=== PATIENT | female | born 1990 | race Caucasian/White ===

== ENCOUNTER 2019-11-22 17:59 | Inpatient (IN) | payer OTHER ==
[~2019-11-22 17:59] MED LIST: Lidocaine 1.5% with EPINEPHrine 1:200,000 5 ML Amp ONE
[2019-11-22] MEDS ORDERED: Lidocaine 1% 50 ML MDV INJECT ONE (18:22)
[2019-11-22] MEDS ORDERED: Sodium Chloride 0.9% 10 ML Syringe FLUSH PRN (18:22)
[2019-11-22] MEDS ORDERED: Nalbuphine 10 MG/ML Syringe IVPUSH PRN (18:22)
[2019-11-22] MEDS ORDERED: Ondansetron 4 MG/2 ML SDV IVPUSH PRN (18:22)
[2019-11-22] MEDS ORDERED: Oxytocin/Lactated Ringers 10 UNIT/1,000 ML BAG IV SCH ×2 (18:30)
[2019-11-22] MEDS: Lactated Ringers 1,000 ML IV SCH ×3 (18:42→20:19)
[2019-11-22] MEDS ORDERED: diphenhydrAMINE 50 MG/ML SDV IVPUSH PRN (19:25)
[2019-11-22] MEDS ORDERED: Bupivacaine/fentaNYL/NS 100 ML Bag EPIDUR PRN (19:25)
[2019-11-22] MEDS ORDERED: fentaNYL 100 MCG/2 ML SDV EPIDUR PRN (19:25)
[2019-11-22] MEDS ORDERED: ePHEDrine 50 MG/ML SDV IVPUSH PRN (19:25)
--- NOTE | 2019-11-22 19:28 | PCM.LDHP ---
L&D History of Present Illness - General Date of Service: 11/22/19 Admit Problem/Dx: Patient Status Order with Admit Dx/Problem 11/22/19 18:04 Patient Status [ADT] Routine 11/22/19 18:22 Patient Status [ADT] Routine Admission Diagnosis/Problem Admission Diagnosis/Problem Source of Information: Patient History Limitations: Reports: No Limitations - History of Present Illness Introduction:: Patient is a 29 y/o at 40 0/7 wks who presents in labor. Contractions started today around 0500. Worsened right before presenting to L&D at 1800. No LOF - Related Data Allergies/Adverse Reactions: Allergies Allergy/AdvReac Type Severity Reaction Status Date / Time No Known Allergies Allergy Verified 03/20/16 02:02 Home Medications: Home Meds Pnv95/Iron Fum/Folic Acid [ Caplet] 1 each PO DAILY 03/05/16 [History] Acetaminophen [Tylenol] 650 mg PO Q6H PRN tablet 11/27/17 [Rx] Benzocaine/Menthol [Dermoplast Pain Relief [place]] 1 spray TOP ASDIRECTED PRN canister 11/27/17 [Rx] Fish Oil/[place]-3 Fatty Acids [Fish Oil 1,000 MG] 1 gm PO DAILY cap 11/27/17 [Rx] Ibuprofen [Motrin] 600 mg PO Q6H PRN tablet 11/27/17 [Rx] Lanolin [Lansinoh HPA] 1 applic TOP ASDIRECTED PRN tube 11/27/17 [Rx] witch Shabana [Tucks] 1 pad TOP ASDIRECTED PRN pad 11/27/17 [Rx] 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 LMP (Approximate): - Past Surgical History HEENT Surgical History: Reports: Myringotomy w Tube(s), Oral Surgery Social & Family History - Family History Family Medical History: Noncontributory - Tobacco Use Tobacco Use Status *Q: Never Tobacco User Second Hand Smoke Exposure: No - Caffeine Use Caffeine Use: Reports: Coffee Caffeine Use Comment: half cup every day - Alcohol Use Alcohol Use History: No - Recreational Drug Use Recreational Drug Use: No H&P Review of Systems - Review of Systems: Review Of Systems: See Below General: Reports: No Symptoms Pulmonary: Reports: No Symptoms Cardiovascular: Reports: No Symptoms Gastrointestinal: Reports: No Symptoms Genitourinary: Reports: No Symptoms Musculoskeletal: Reports: No Symptoms Psychiatric: Reports: No Symptoms Neurological: Reports: No Symptoms L&D Exam - Exam Exam: See Below - Vital Signs Vital Signs: Last Vital Signs Temp 37.2 C 11/22/19 18:04 Pulse 80 11/22/19 18:04 Resp 14 11/22/19 18:04 BP 134/87 11/22/19 18:04 Pulse Ox Weight: 74.389 kg - OB Specific Contraction Intensity: Moderate to Strong Movement: Active Heart Tones: Present Heart Tones per Min: 125 Heart Rate (FHR) Variability: Moderate (6-25 bmp) Presentation: Vertex - Cunningham Score Cunningham Score Cervix Position: Anterior Cunningham Score Consistency: Soft Cunningham Score Effacement: >80% Cunningham Score Dilation: > 5 cm Cunningham Score Infant's Station: -2 Cunningham Score Total: 11 - Exam General: Alert, Oriented, Cooperative Lungs: Clear to Auscultation, Normal Respiratory Effort Cardiovascular: Regular Rate, Regular Rhythm GI/Abdominal Exam: Soft, Non-Tender Genitourinary: Normal external exam Extremities: Normal Inspection Skin: Warm, Dry, Intact - Patient Data Lab Results Last 24 hrs: Laboratory Results - last 24 hr 11/22/19 Range/Units 18:45 WBC 12.11 H (3.98-10.04) K/mm3 RBC 4.31 (3.98-5.22) M/mm3 Hgb 13.4 (11.2-15.7) gm/dl Hct 40.0 (34.1-44.9) % MCV 92.8 (79.4-94.8) fl MCH 31.1 (25.6-32.2) pg MCHC 33.5 (32.2-35.5) g/dl RDW Std Deviation 44.7 (36.4-46.3) fL Plt Count 202 (182-369) K/mm3 MPV 10.6 (9.4-12.3) fl Neut % (Auto) 83.4 H (34.0-71.1) % Lymph % (Auto) 11.1 L (19.3-51.7) % [place] % (Auto) 5.0 (4.7-12.5) % Eos % (Auto) 0.2 L (0.7-5.8) Baso % (Auto) 0.1 (0.1-1.2) % Neut # (Auto) 10.09 H (1.56-6.13) K/mm3 Lymph # (Auto) 1.35 (1.18-3.74) K/mm3 [place] # (Auto) 0.60 H (0.24-0.36) K/mm3 Eos # (Auto) 0.03 L (0.04-0.36) K/mm3 Baso # (Auto) 0.01 (0.01-0.08) K/mm3 Manual Slide Review Not Reportable Result Diagrams: 11/22/19 18:45 - Problem List (1) 40 weeks gestation of SNOMED Code(s): 83947107 ICD Code: Z3A.40 - 40 WEEKS GESTATION OF Status: Acute Current Visit: Yes (2) Normal labor SNOMED Code(s): 82140000 ICD Code: O80 - ENCOUNTER FOR FULL-TERM UNCOMPLICATED DELIVERY; Z37.9 - OUTCOME OF DELIVERY, UNSPECIFIED Status: Acute Current Visit: No Problem List Initiated/Reviewed/Updated: Yes Orders Last 24hrs: Active Orders 24 hr Category Date Time Status Patient Status [ADT] Routine ADT 11/22/19 18:22 Active Activity as Tolerated [RC] PFP Care 11/22/19 18:22 Active Communication Order [RC] ASDIRECTED Care 11/22/19 18:22 Active Heart Tones [RC] ASDIRECTED Care 11/22/19 18:23 Active Notify Provider [RC] ASDIRECTED Care 11/22/19 19:25 Ordered Notify Provider [RC] PFP Care 11/22/19 18:22 Active Notify Provider [RC] PRN Care 11/22/19 18:22 Active Peripheral IV Care [RC] . DIRECTED Care 11/22/19 18:23 Active Urinary Catheter Assessment [RC] ASDIRECTED Care 11/22/19 18:22 Active Vaginal Exam [RC] PRN Care 11/22/19 18:04 Active Vital Signs [RC] PER UNIT ROUTINE Care 11/22/19 18:04 Active Regular Diet [DIET] Diet 11/22/19 Breakfast Active CORONAVIRUS COVID-19 VAMSHI [MOLEC] Stat Lab 11/22/19 18:12 Received RAPID PLASMA REAGIN,RPR [CHEM] Routine Lab 11/22/19 18:45 Received Bupivacaine/fentaNYL/NS [fentaNYL/Bupivacaine/NS 2 MCG- Med 11/22/19 19:25 Ordered 0.125% 100 ML] 100 ml EPIDUR ASDIRECTED PRN Lactated Ringers [Ringers, Lactated] 1,000 ml Med 11/22/19 18:30 Active IV ASDIRECTED Nalbuphine [Nubain] Med 11/22/19 18:22 Active 10 mg IVPUSH Q2H PRN Ondansetron [Zofran] Med 11/22/19 18:22 Active 4 mg IVPUSH Q4H PRN Oxytocin/Lactated Ringers [Pitocin in LR 10 Units/1,000 Med 11/22/19 18:30 Active ML] 10 unit in 1,000 ml IV .CONTINUOUS Oxytocin/Lactated Ringers [Pitocin in LR 10 Units/1,000 Med 11/22/19 18:30 Active ML] 10 unit in 1,000 ml IV TITRATE Sodium Chloride 0.9% [Saline Flush] Med 11/22/19 18:22 Active 10 ml FLUSH ASDIRECTED PRN diphenhydrAMINE [Benadryl] Med 11/22/19 19:25 Ordered 25 mg IVPUSH Q6H PRN ePHEDrine [ePHEDrine sulfate] Med 11/22/19 19:25 Ordered 5 mg IVPUSH ASDIRECTED PRN fentaNYL [Sublimaze] Med 11/22/19 19:25 Ordered 100 mcg EPIDUR Q3H PRN Electronic Heart Tones Ext w TOCO [WOMSER] Oth 11/22/19 18:22 Ordered Routine Electronic Heart Tones Internal [WOMSER] Per Unit Oth 11/22/19 18:22 Ordered Routine Peripheral IV Insertion Adult [OM.PC] Routine Oth 11/22/19 18:22 Ordered Resuscitation Status Routine Resus Stat 11/22/19 18:03 Ordered Medication Orders Lactated Ringer's (Ringers, Lactated) 1,000 mls @ 100 mls/hr IV ASDIRECTED ELLEN Last Admin: 11/22/19 18:42 Dose: 100 mls/hr Documented by: ESPERANZA Oxytocin/Lactated Ringer's (Pitocin In Lr 10 Units/1,000 Ml) 10 unit in 1,000 mls @ 12 mls/hr IV TITRATE ELLEN; Protocol Oxytocin/Lactated Ringer's (Pitocin In Lr 10 Units/1,000 Ml) 10 unit in 1,000 mls @ 100 mls/hr IV .CONTINUOUS ELLEN; Protocol Nalbuphine HCl (Nubain) 10 mg IVPUSH Q2H PRN PRN Reason: Pain Ondansetron HCl (Zofran) 4 mg IVPUSH Q4H PRN PRN Reason: Nausea/Vomiting Sodium Chloride (Saline Flush) 10 ml FLUSH ASDIRECTED PRN PRN Reason: Keep Vein Open Assessment/Plan Comment:: On admission 4 cm. Now comfortable with epidural. 9 cm on current assessment. GBS negative. AROM done with release of clear fluid. Anticipate
[2019-11-22] MEDS ORDERED: fentaNYL 100 MCG/2 ML SDV ONE (19:31)
--- NOTE | 2019-11-22 20:25 | PCM.PREANE ---
Preanesthetic Assessment - Procedure Proposed Procedure: Labor Epidural - Anesthesia/Transfusion/Family Hx Anesthesia History: Prior Anesthesia Without Reaction Transfusion History: No Prior Transfusion(s) Type of Transfusion Reactions: Reports: Unknown - Review of Systems General: No Symptoms Pulmonary: No Symptoms Cardiovascular: No Symptoms Gastrointestinal: No Symptoms Neurological: No Symptoms Other: Reports: None - Physical Assessment NPO Status Date: 11/22/19 NPO Status Time: 12:00 Vital Signs: Last Vital Signs Temp 99.0 F 11/22/19 18:04 Pulse 80 11/22/19 18:04 Resp 14 11/22/19 18:04 BP 134/87 11/22/19 18:04 Pulse Ox Height: 5 ft 5 in Weight: 164 lb ASA Class: 1 Mental Status: Alert & Oriented x3 ROM/Head Extension: Full Lungs: Normal Respiratory Effort Cardiovascular: Regular Rate, Regular Rhythm - Lab Values: Laboratory Last Values WBC 12.11 K/mm3 (3.98-10.04) H 11/22/19 18:45 RBC 4.31 M/mm3 (3.98-5.22) 11/22/19 18:45 Hgb 13.4 gm/dl (11.2-15.7) 11/22/19 18:45 Hct 40.0 % (34.1-44.9) 11/22/19 18:45 MCV 92.8 fl (79.4-94.8) 11/22/19 18:45 MCH 31.1 pg (25.6-32.2) 11/22/19 18:45 MCHC 33.5 g/dl (32.2-35.5) 11/22/19 18:45 RDW Std Deviation 44.7 fL (36.4-46.3) 11/22/19 18:45 Plt Count 202 K/mm3 (182-369) 11/22/19 18:45 MPV 10.6 fl (9.4-12.3) 11/22/19 18:45 Neut % (Auto) 83.4 % (34.0-71.1) H 11/22/19 18:45 Lymph % (Auto) 11.1 % (19.3-51.7) L 11/22/19 18:45 [place] % (Auto) 5.0 % (4.7-12.5) 11/22/19 18:45 Eos % (Auto) 0.2 (0.7-5.8) L 11/22/19 18:45 Baso % (Auto) 0.1 % (0.1-1.2) 11/22/19 18:45 Neut # (Auto) 10.09 K/mm3 (1.56-6.13) H 11/22/19 18:45 Lymph # (Auto) 1.35 K/mm3 (1.18-3.74) 11/22/19 18:45 [place] # (Auto) 0.60 K/mm3 (0.24-0.36) H 11/22/19 18:45 Eos # (Auto) 0.03 K/mm3 (0.04-0.36) L 11/22/19 18:45 Baso # (Auto) 0.01 K/mm3 (0.01-0.08) 11/22/19 18:45 Manual Slide Review Not Reportable 11/22/19 18:45 - Allergies Allergies/Adverse Reactions: Allergies Allergy/AdvReac Type Severity Reaction Status Date / Time No Known Allergies Allergy Verified 03/20/16 02:02 - Acknowledgements Anesthesia Type Planned: Epidural Pt an Appropriate Candidate for the Planned Anesthesia: Yes Alternatives and Risks of Anesthesia Discussed w Pt/Guardian: Yes Pt/Guardian Understands and Agrees with Anesthesia Plan: Yes 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 - Past Surgical History HEENT Surgical History: Reports: Myringotomy w Tube(s), Oral Surgery - SUBSTANCE USE Tobacco Use Status *Q: Never Tobacco User Second Hand Smoke Exposure: No Recreational Drug Use History: No - HOME MEDS Home Medications: Home Meds Pnv95/Iron Fum/Folic Acid [ Caplet] 1 each PO DAILY 03/05/16 [History] Acetaminophen [Tylenol] 650 mg PO Q6H PRN tablet 11/27/17 [Rx] Benzocaine/Menthol [Dermoplast Pain Relief [place]] 1 spray TOP ASDIRECTED PRN canister 11/27/17 [Rx] Fish Oil/[place]-3 Fatty Acids [Fish Oil 1,000 MG] 1 gm PO DAILY cap 11/27/17 [Rx] Ibuprofen [Motrin] 600 mg PO Q6H PRN tablet 11/27/17 [Rx] Lanolin [Lansinoh HPA] 1 applic TOP ASDIRECTED PRN tube 11/27/17 [Rx] juno Donald [Tucks] 1 pad TOP ASDIRECTED PRN pad 11/27/17 [Rx] - CURRENT (IN HOUSE) MEDS Current Meds: Current Medications Diphenhydramine HCl (Benadryl) 25 mg IVPUSH Q6H PRN PRN Reason: pruritis Ephedrine Sulfate (Ephedrine Sulfate) 5 mg IVPUSH ASDIRECTED PRN PRN Reason: Hypotension Fentanyl (Sublimaze) 100 mcg EPIDUR Q3H PRN PRN Reason: Pain Last Admin: 11/22/19 19:34 Dose: 100 mcg Documented by: Fentanyl/Bupivacaine HCl (Fentanyl/Bupivacaine/Ns 2 Mcg-0.125% 100 Ml) 100 ml EPIDUR ASDIRECTED PRN PRN Reason: Pain Last Admin: 11/22/19 19:35 Dose: 100 ml Documented by: Lactated Ringer's (Ringers, Lactated) 1,000 mls @ 100 mls/hr IV ASDIRECTED ELLEN Last Admin: 11/22/19 20:19 Dose: 100 mls/hr Documented by: Oxytocin/Lactated Ringer's (Pitocin In Lr 10 Units/1,000 Ml) 10 unit in 1,000 mls @ 12 mls/hr IV TITRATE ELLEN; Protocol Oxytocin/Lactated Ringer's (Pitocin In Lr 10 Units/1,000 Ml) 10 unit in 1,000 mls @ 100 mls/hr IV .CONTINUOUS ELLEN; Protocol Nalbuphine HCl (Nubain) 10 mg IVPUSH Q2H PRN PRN Reason: Pain Ondansetron HCl (Zofran) 4 mg IVPUSH Q4H PRN PRN Reason: Nausea/Vomiting Sodium Chloride (Saline Flush) 10 ml FLUSH ASDIRECTED PRN PRN Reason: Keep Vein Open Discontinued Medications Fentanyl (Sublimaze) Confirm Administered Dose 100 mcg .ROUTE .STK-MED ONE Stop: 11/22/19 19:32 Lidocaine HCl (Xylocaine 1%) 50 ml INJECT ONETIME ONE Stop: 11/22/19 18:23
--- NOTE | 2019-11-22 22:50 | PCM.DEL ---
L & D Note - General Info Date of Service: 11/22/19 - Delivery Note Labor: Spontaneous Delivery Outcome: Livebirth Delivery Method: Spontaneous Vaginal Delivery-Single Delivery Mode: Spontaneous Presentation: Left Occiput Anterior (MEENAKSHI) Nuchal Cord: Present (tight, not reduced ) Anesthesia Type: Epidural Amniotic Fluid Description: Clear Episiotomy Type: None Laceration: 1st Degree Suture type: Vicryl Suture size: 2-0 Placenta: Intact, Spontaneous Cord: 3 Vessels Estimated Blood Loss: 200 [place]: Bulb Syringe, Stimulated, Warmed, [place] Used, Warmer Used Delivery Comments (Free Text/Narrative):: Patient found to be complete and began pushing. With maternal pushing effort head delivered from MEENAKSHI presentation. Nuchal cord present, but not reduced as tight. With gentle downward traction shoulders and body delivered. Infant placed on maternal abdomen. Cord clamped and cut. Cord blood obtained. Placenta allowed time to separate and expelled intact. Inspection of perineum showed a 1st degree laceration which was repaired with a 2-0 vicryl in the typical fashion - General Info Date of Service: 11/22/19 - Patient Data Vitals - Most Recent: Last Vital Signs Temp 37.2 C 11/22/19 18:04 Pulse 80 11/22/19 18:04 Resp 14 11/22/19 18:04 BP 134/87 11/22/19 18:04 Pulse Ox Weight - Most Recent: 74.389 kg - Problem List & Annotations (1) 40 weeks gestation of SNOMED Code(s): 50102166 Code(s): Z3A.40 - 40 WEEKS GESTATION OF Status: Acute Current Visit: Yes (2) Normal labor SNOMED Code(s): 45325401 Code(s): O80 - ENCOUNTER FOR FULL-TERM UNCOMPLICATED DELIVERY; Z37.9 - OUTCOME OF DELIVERY, UNSPECIFIED Status: Acute Current Visit: No (3) Vaginal delivery SNOMED Code(s): 678031387 Code(s): O80 - ENCOUNTER FOR FULL-TERM UNCOMPLICATED DELIVERY Status: Acute Current Visit: No - Problem List Review Problem List Initiated/Reviewed/Updated: Yes - My Orders Last 24 Hours: My Active Orders 11/22/19 Breakfast Regular Diet [DIET] 11/22/19 18:03 Resuscitation Status Routine 11/22/19 18:22 Patient Status [ADT] Routine Activity as Tolerated [RC] PFP Communication Order [RC] ASDIRECTED Notify Provider [RC] PFP Notify Provider [RC] PRN Urinary Catheter Assessment [RC] ASDIRECTED Nalbuphine [Nubain] 10 mg IVPUSH Q2H PRN Ondansetron [Zofran] 4 mg IVPUSH Q4H PRN Sodium Chloride 0.9% [Saline Flush] 10 ml FLUSH ASDIRECTED PRN Electronic Heart Tones Ext w TOCO [WOMSER] Routine Electronic Heart Tones Internal [WOMSER] Per Unit Routine Peripheral IV Insertion Adult [OM.PC] Routine 11/22/19 18:23 Peripheral IV Care [RC] Q2HR 11/22/19 18:30 Lactated Ringers [Ringers, Lactated] 1,000 ml IV ASDIRECTED Oxytocin/Lactated Ringers [Pitocin in LR 10 Units/1,000 ML] 10 unit in 1,000 ml IV .CONTINUOUS Oxytocin/Lactated Ringers [Pitocin in LR 10 Units/1,000 ML] 10 unit in 1,000 ml IV TITRATE - Assessment Assessment:: PPD#0 - Plan Plan:: Routine cares Breast feeding Discharge home in 2 days
[2019-11-22] MEDS ORDERED: Docusate Sodium 100 MG Cap PO PRN (23:27)
[2019-11-22] MEDS ORDERED: Acetaminophen 325 MG Tab PO PRN (23:27)
[2019-11-22] MEDS ORDERED: Benzocaine/Menthol 20%-0.5% Spray 56 GM Canister TOP PRN (23:27)
[2019-11-22] MEDS ORDERED: Witch Hazel Medicated Pads 40/Jar TOP PRN (23:27)
[2019-11-23] MEDS: Ibuprofen 600 MG Tab PO PRN ×3 (04:00→18:07)
--- NOTE | 2019-11-23 06:59 | PCM.PNPP ---
- General Info Date of Service: 11/23/19 Functional Status: Reports: Pain Controlled, Tolerating Diet, Ambulating, Urinating - Review of Systems General: Reports: No Symptoms Pulmonary: Reports: No Symptoms Cardiovascular: Reports: No Symptoms Gastrointestinal: Reports: No Symptoms Genitourinary: Reports: No Symptoms Musculoskeletal: Reports: No Symptoms - Patient Data Vital Signs - Most Recent: Last Vital Signs Temp 37.4 C 11/23/19 03:27 Pulse 79 11/23/19 03:27 Resp 14 11/23/19 03:27 BP 111/61 11/23/19 03:27 Pulse Ox 97 11/23/19 03:27 Weight - Most Recent: 74.389 kg Lab Results - Last 24 Hours: Laboratory Results - last 24 hr 11/22/19 11/22/19 11/22/19 Range/Units 18:12 18:45 18:45 WBC 12.11 H (3.98-10.04) K/mm3 RBC 4.31 (3.98-5.22) M/mm3 Hgb 13.4 (11.2-15.7) gm/dl Hct 40.0 (34.1-44.9) % MCV 92.8 (79.4-94.8) fl MCH 31.1 (25.6-32.2) pg MCHC 33.5 (32.2-35.5) g/dl RDW Std Deviation 44.7 (36.4-46.3) fL Plt Count 202 (182-369) K/mm3 MPV 10.6 (9.4-12.3) fl Neut % (Auto) 83.4 H (34.0-71.1) % Lymph % (Auto) 11.1 L (19.3-51.7) % [place] % (Auto) 5.0 (4.7-12.5) % Eos % (Auto) 0.2 L (0.7-5.8) Baso % (Auto) 0.1 (0.1-1.2) % Neut # (Auto) 10.09 H (1.56-6.13) K/mm3 Lymph # (Auto) 1.35 (1.18-3.74) K/mm3 [place] # (Auto) 0.60 H (0.24-0.36) K/mm3 Eos # (Auto) 0.03 L (0.04-0.36) K/mm3 Baso # (Auto) 0.01 (0.01-0.08) K/mm3 Manual Slide Review Not Reportable RPR Non-reactive (NONREACTIVE) SARS-CoV-2 RNA (VAMSHI) Negative (NEGATIVE) Med Orders - Current: Current Medications Acetaminophen (Tylenol) 650 mg PO Q4H PRN PRN Reason: mild pain or fever Benzocaine/Menthol (Dermoplast Pain Relief [place]) 0 gm TOP ASDIRECTED PRN PRN Reason: Perineal Comfort Measure Last Admin: 11/23/19 01:21 Dose: 1 can Documented by: Docusate Sodium (Colace) 100 mg PO BID PRN PRN Reason: Constipation Ibuprofen (Motrin) 600 mg PO Q6H PRN PRN Reason: Mild pain or fever Last Admin: 11/23/19 04:00 Dose: 600 mg Documented by: Alice Cheung (Alize) 1 pad TOP ASDIRECTED PRN PRN Reason: Perineal Comfort Measure Last Admin: 11/23/19 01:22 Dose: 1 tub Documented by: Discontinued Medications Diphenhydramine HCl (Benadryl) 25 mg IVPUSH Q6H PRN PRN Reason: pruritis Ephedrine Sulfate (Ephedrine Sulfate) 5 mg IVPUSH ASDIRECTED PRN PRN Reason: Hypotension Fentanyl (Sublimaze) 100 mcg EPIDUR Q3H PRN PRN Reason: Pain Last Admin: 11/22/19 19:34 Dose: 100 mcg Documented by: Fentanyl (Sublimaze) Confirm Administered Dose 100 mcg .ROUTE .STK-MED ONE Stop: 11/22/19 19:32 Last Admin: 11/22/19 21:13 Dose: Not Given Documented by: Fentanyl/Bupivacaine HCl (Fentanyl/Bupivacaine/Ns 2 Mcg-0.125% 100 Ml) 100 ml EPIDUR ASDIRECTED PRN PRN Reason: Pain Last Admin: 11/22/19 19:35 Dose: 100 ml Documented by: Lactated Ringer's (Ringers, Lactated) 1,000 mls @ 100 mls/hr IV ASDIRECTED ELLEN Last Admin: 11/22/19 20:19 Dose: 100 mls/hr Documented by: Oxytocin/Lactated Ringer's (Pitocin In Lr 10 Units/1,000 Ml) 10 unit in 1,000 mls @ 12 mls/hr IV TITRATE ELLEN; Protocol Oxytocin/Lactated Ringer's (Pitocin In Lr 10 Units/1,000 Ml) 10 unit in 1,000 mls @ 100 mls/hr IV .CONTINUOUS ELLEN; Protocol Last Admin: 11/22/19 22:33 Dose: 100 mls/hr Documented by: Lidocaine HCl (Xylocaine 1%) 50 ml INJECT ONETIME ONE Stop: 11/22/19 18:23 Last Admin: 11/23/19 05:10 Dose: Not Given Documented by: Nalbuphine HCl (Nubain) 10 mg IVPUSH Q2H PRN PRN Reason: Pain Ondansetron HCl (Zofran) 4 mg IVPUSH Q4H PRN PRN Reason: Nausea/Vomiting Sodium Chloride (Saline Flush) 10 ml FLUSH ASDIRECTED PRN PRN Reason: Keep Vein Open - Interaction Disposition, : in Room with Family Interaction: Holding Infant Infant Feeding: Breastfed ; Nursed Well Support Person: - Recovery Exam Fundal Tone: Firm Fundal Level: At Umbilicus Fundal Placement: Midline Lochia Amount: Small Lochia Color: Rubra/Red Episiotomy/Laceration: Approximated Bladder Status: Voiding Urinary Elimination: Voided - Exam General: Alert, Oriented, Cooperative HEENT: Other (petechiae noted onder the neck ) GI/Abdominal Exam: Soft, Non-Tender Extremities: Normal Inspection - Problem List & Annotations (1) 40 weeks gestation of SNOMED Code(s): 13355426 Code(s): Z3A.40 - 40 WEEKS GESTATION OF Status: Acute Current Visit: Yes (2) Normal labor SNOMED Code(s): 62553592 Code(s): O80 - ENCOUNTER FOR FULL-TERM UNCOMPLICATED DELIVERY; Z37.9 - OUTCOME OF DELIVERY, UNSPECIFIED Status: Acute Current Visit: No (3) Vaginal delivery SNOMED Code(s): 050803072 Code(s): O80 - ENCOUNTER FOR FULL-TERM UNCOMPLICATED DELIVERY Status: Acute Current Visit: No - Problem List Review Problem List Initiated/Reviewed/Updated: Yes - My Orders Last 24 Hours: My Active Orders 11/22/19 Breakfast Regular Diet [DIET] 11/22/19 18:03 Resuscitation Status Routine 11/22/19 23:27 Acetaminophen [TylenoL] 650 mg PO Q4H PRN Benzocaine/Menthol [Dermoplast Pain Relief [place]] See Dose Instructions TOP ASDIRECTED PRN Docusate Sodium [Colace] 100 mg PO BID PRN Ibuprofen [Motrin] 600 mg PO Q6H PRN witch Shabana [Tucks] 1 pad TOP ASDIRECTED PRN Heat Therapy [OM.PC] PRN 11/22/19 23:27 Activity as Tolerated [RC] PER UNIT ROUTINE Vital Signs [RC] 03,09,15,21 Assess Lochia [WOMSER] Per Unit Routine Assess Uterine Involution [WOMSER] Per Unit Routine Breast Pump [WOMSER] Per Unit Routine Ice Therapy [OM.PC] Per Unit Routine Perineal Care [OM.PC] Per Unit Routine Peripheral IV Discontinue [OM.PC] Routine Sitz Bath [OM.PC] Per Unit Routine 11/23/19 23:27 Heat Therapy [OM.PC] PRN - Assessment Assessment:: PPD#1 - Plan Plan:: Routine cares Breast feeding Discharge home in 1 day
--- NOTE | 2019-11-23 11:05 | PCM48HPAN ---
Post Anesthesia Note - EVALUATION WITHIN 48HRS OF ANESTHETIC Vital Signs in Normal Range: Yes Patient Participated in Evaluation: Yes Respiratory Function Stable: Yes Airway Patent: Yes Cardiovascular Function Stable: Yes Hydration Status Stable: Yes Pain Control Satisfactory: Yes Nausea and Vomiting Control Satisfactory: Yes Mental Status Recovered: Yes Vital Signs: Last Vital Signs Temp 36.8 C 11/23/19 09:14 Pulse 80 11/23/19 09:14 Resp 16 11/23/19 09:14 BP 114/62 11/23/19 09:14 Pulse Ox 98 11/23/19 09:14
[2019-11-24] MEDS: Ibuprofen 600 MG Tab PO PRN ×2 (00:44→16:23)
--- NOTE | 2019-11-24 04:02 | PCM.PNPP ---
- General Info Date of Service: 11/24/19 Functional Status: Reports: Pain Controlled, Tolerating Diet, Ambulating - Review of Systems General: Reports: No Symptoms Pulmonary: Reports: No Symptoms Cardiovascular: Reports: No Symptoms Gastrointestinal: Reports: No Symptoms Genitourinary: Reports: Other (Passed one larger clot this AM, otherwise bleeding appropriate ) Musculoskeletal: Reports: No Symptoms - Patient Data Vital Signs - Most Recent: Last Vital Signs Temp 36.7 C 11/24/19 00:44 Pulse 73 11/24/19 00:44 Resp 14 11/24/19 00:44 BP 121/84 11/24/19 00:44 Pulse Ox 98 11/24/19 00:44 Weight - Most Recent: 74.389 kg I&O - Last 24 Hours: Intake & Output 11/23/19 11/23/19 11/24/19 14:59 22:59 06:59 Intake Total 180 0 Balance 180 0 Med Orders - Current: Current Medications Acetaminophen (Tylenol) 650 mg PO Q4H PRN PRN Reason: mild pain or fever Benzocaine/Menthol (Dermoplast Pain Relief [place]) 0 gm TOP ASDIRECTED PRN PRN Reason: Perineal Comfort Measure Last Admin: 11/23/19 01:21 Dose: 1 can Documented by: Docusate Sodium (Colace) 100 mg PO BID PRN PRN Reason: Constipation Ibuprofen (Motrin) 600 mg PO Q6H PRN PRN Reason: Mild pain or fever Last Admin: 11/24/19 00:44 Dose: 600 mg Documented by: Alice Blanco) 1 pad TOP ASDIRECTED PRN PRN Reason: Perineal Comfort Measure Last Admin: 11/23/19 01:22 Dose: 1 tub Documented by: Discontinued Medications Diphenhydramine HCl (Benadryl) 25 mg IVPUSH Q6H PRN PRN Reason: pruritis Ephedrine Sulfate (Ephedrine Sulfate) 5 mg IVPUSH ASDIRECTED PRN PRN Reason: Hypotension Fentanyl (Sublimaze) 100 mcg EPIDUR Q3H PRN PRN Reason: Pain Last Admin: 11/22/19 19:34 Dose: 100 mcg Documented by: Fentanyl (Sublimaze) Confirm Administered Dose 100 mcg .ROUTE .STK-MED ONE Stop: 11/22/19 19:32 Last Admin: 11/22/19 21:13 Dose: Not Given Documented by: Fentanyl/Bupivacaine HCl (Fentanyl/Bupivacaine/Ns 2 Mcg-0.125% 100 Ml) 100 ml EPIDUR ASDIRECTED PRN PRN Reason: Pain Last Admin: 11/22/19 19:35 Dose: 100 ml Documented by: Lactated Ringer's (Ringers, Lactated) 1,000 mls @ 100 mls/hr IV ASDIRECTED ELLEN Last Admin: 11/22/19 20:19 Dose: 100 mls/hr Documented by: Oxytocin/Lactated Ringer's (Pitocin In Lr 10 Units/1,000 Ml) 10 unit in 1,000 mls @ 12 mls/hr IV TITRATE ELLEN; Protocol Oxytocin/Lactated Ringer's (Pitocin In Lr 10 Units/1,000 Ml) 10 unit in 1,000 mls @ 100 mls/hr IV .CONTINUOUS ELLEN; Protocol Last Admin: 11/22/19 22:33 Dose: 100 mls/hr Documented by: Lidocaine HCl (Xylocaine 1%) 50 ml INJECT ONETIME ONE Stop: 11/22/19 18:23 Last Admin: 11/23/19 05:10 Dose: Not Given Documented by: Nalbuphine HCl (Nubain) 10 mg IVPUSH Q2H PRN PRN Reason: Pain Ondansetron HCl (Zofran) 4 mg IVPUSH Q4H PRN PRN Reason: Nausea/Vomiting Sodium Chloride (Saline Flush) 10 ml FLUSH ASDIRECTED PRN PRN Reason: Keep Vein Open - Interaction Disposition, : in Room with Family Interaction: Holding Feeding: Breastfed ; Nursed Well Support Person: - Recovery Exam Fundal Tone: Firm Fundal Level: At Umbilicus Fundal Placement: Midline Lochia Amount: Small Lochia Color: Rubra/Red Perineum Description: Other (see below) Other Perinuem Description: 1st degree Episiotomy/Laceration: Approximated Bladder Status: Voiding Urinary Elimination: Voided - Exam General: Alert, Oriented, Cooperative Neck: Other (Petechia still present, but less noticeable ) GI/Abdominal Exam: Soft, Non-Tender Extremities: Normal Inspection - Problem List & Annotations (1) 40 weeks gestation of SNOMED Code(s): 64016432 Code(s): Z3A.40 - 40 WEEKS GESTATION OF Status: Acute Current Visit: Yes (2) Normal labor SNOMED Code(s): 13497019 Code(s): O80 - ENCOUNTER FOR FULL-TERM UNCOMPLICATED DELIVERY; Z37.9 - OUTCOME OF DELIVERY, UNSPECIFIED Status: Acute Current Visit: No (3) Vaginal delivery SNOMED Code(s): 819761312 Code(s): O80 - ENCOUNTER FOR FULL-TERM UNCOMPLICATED DELIVERY Status: Acute Current Visit: No - Problem List Review Problem List Initiated/Reviewed/Updated: Yes - My Orders Last 24 Hours: My Active Orders 11/23/19 23:27 Heat Therapy [OM.PC] PRN - Assessment Assessment:: PPD#2 - Plan Plan:: Routine cares Breast feeding Discharge home today
--- NOTE | 2019-11-24 04:03 | PCM.DCSUM1 ---
Discharge Summary - Discharge Data Discharge Date: 11/24/19 Discharge Disposition: Home, Self-Care 01 Condition: Good - Referral to Home Health Primary Care Physician: Leyda Cortez MD - Discharge Diagnosis/Problem(s) (1) 40 weeks gestation of SNOMED Code(s): 12969306 ICD Code: Z3A.40 - 40 WEEKS GESTATION OF Status: Acute Current Visit: Yes (2) Normal labor SNOMED Code(s): 99782366 ICD Code: O80 - ENCOUNTER FOR FULL-TERM UNCOMPLICATED DELIVERY; Z37.9 - OUTCOME OF DELIVERY, UNSPECIFIED Status: Acute Current Visit: No (3) Vaginal delivery SNOMED Code(s): 507656382 ICD Code: O80 - ENCOUNTER FOR FULL-TERM UNCOMPLICATED DELIVERY Status: Acute Current Visit: No - Patient Summary/Data Complications: None Consults: None Recommended Follow-up Testing/Procedures: None Hospital Course: 29 y/o at 40 0/7 wks who presented in labor. Progressed well to complete dilation and underwent an uncomplicated . See delivery note. did well and was discharged home on PPD#2 - Patient Instructions Diet: Regular Diet as Tolerated Activity: As Tolerated Activity, Other: Pelvic rest for 6 weeks Driving: May Drive Today Showering/Bathing: May Shower Showering/Bathing, Other: May Bathe Notify Provider of: Fever, Increased Pain, Swelling and Redness, Drainage, Nausea and/or Vomiting - Discharge Plan *PRESCRIPTION DRUG MONITORING PROGRAM REVIEWED*: No *COPY OF PRESCRIPTION DRUG MONITORING REPORT IN PATIENT SAVANNAH: No Home Medications: Home Meds Docusate Sodium [Colace] 100 mg PO BID PRN cap 11/23/19 [Rx] Fish Oil/[place]-3 Fatty Acids [Fish Oil 1,000 MG] 2 tab DAILY 11/23/19 [History] Ibuprofen [Motrin] 600 mg PO Q6H PRN tablet 11/23/19 [Rx] Vits #93/Iron Fum/FA [ Formula Tablet] 1 tab DAILY 11/23/19 [History] Patient Handouts: Care After Vaginal Delivery Referrals: Leyda Cortez MD [Primary Care Provider] - (3 weeks for check ) - Discharge Summary/Plan Comment DC Time >30 min.: No - Patient Data Vitals - Most Recent: Last Vital Signs Temp 36.7 C 11/24/19 00:44 Pulse 73 11/24/19 00:44 Resp 14 11/24/19 00:44 BP 121/84 11/24/19 00:44 Pulse Ox 98 11/24/19 00:44 Weight - Most Recent: 74.389 kg I&O - Last 24 hours: Intake & Output 11/23/19 11/23/19 11/24/19 14:59 22:59 06:59 Intake Total 180 0 Balance 180 0 Med Orders - Current: Current Medications Acetaminophen (Tylenol) 650 mg PO Q4H PRN PRN Reason: mild pain or fever Benzocaine/Menthol (Dermoplast Pain Relief [place]) 0 gm TOP ASDIRECTED PRN PRN Reason: Perineal Comfort Measure Last Admin: 11/23/19 01:21 Dose: 1 can Documented by: Docusate Sodium (Colace) 100 mg PO BID PRN PRN Reason: Constipation Ibuprofen (Motrin) 600 mg PO Q6H PRN PRN Reason: Mild pain or fever Last Admin: 11/24/19 00:44 Dose: 600 mg Documented by: Alice Cheung (Alize) 1 pad TOP ASDIRECTED PRN PRN Reason: Perineal Comfort Measure Last Admin: 11/23/19 01:22 Dose: 1 tub Documented by: Discontinued Medications Diphenhydramine HCl (Benadryl) 25 mg IVPUSH Q6H PRN PRN Reason: pruritis Ephedrine Sulfate (Ephedrine Sulfate) 5 mg IVPUSH ASDIRECTED PRN PRN Reason: Hypotension Fentanyl (Sublimaze) 100 mcg EPIDUR Q3H PRN PRN Reason: Pain Last Admin: 11/22/19 19:34 Dose: 100 mcg Documented by: Fentanyl (Sublimaze) Confirm Administered Dose 100 mcg .ROUTE .STK-MED ONE Stop: 11/22/19 19:32 Last Admin: 11/22/19 21:13 Dose: Not Given Documented by: Fentanyl/Bupivacaine HCl (Fentanyl/Bupivacaine/Ns 2 Mcg-0.125% 100 Ml) 100 ml EPIDUR ASDIRECTED PRN PRN Reason: Pain Last Admin: 11/22/19 19:35 Dose: 100 ml Documented by: Lactated Ringer's (Ringers, Lactated) 1,000 mls @ 100 mls/hr IV ASDIRECTED ELLEN Last Admin: 11/22/19 20:19 Dose: 100 mls/hr Documented by: Oxytocin/Lactated Ringer's (Pitocin In Lr 10 Units/1,000 Ml) 10 unit in 1,000 mls @ 12 mls/hr IV TITRATE ELLEN; Protocol Oxytocin/Lactated Ringer's (Pitocin In Lr 10 Units/1,000 Ml) 10 unit in 1,000 mls @ 100 mls/hr IV .CONTINUOUS ELLEN; Protocol Last Admin: 11/22/19 22:33 Dose: 100 mls/hr Documented by: Lidocaine HCl (Xylocaine 1%) 50 ml INJECT ONETIME ONE Stop: 11/22/19 18:23 Last Admin: 11/23/19 05:10 Dose: Not Given Documented by: Nalbuphine HCl (Nubain) 10 mg IVPUSH Q2H PRN PRN Reason: Pain Ondansetron HCl (Zofran) 4 mg IVPUSH Q4H PRN PRN Reason: Nausea/Vomiting Sodium Chloride (Saline Flush) 10 ml FLUSH ASDIRECTED PRN PRN Reason: Keep Vein Open
[2019-11-24 10:49] VITALS: BP 128/72; PULSE 80
== END 2019-11-24 18:30 | disposition home or self-care (01) | DRG 807 ==
LOC: JD.OBCHECK 17:59 → JD.OB 18:01 → JD.OBCHECK 19:33 → OBSVTOIN 22:33 → JD.OB 22:50
PROVIDERS: ADMIT Obstetrics & Gynecology; ATTEND Obstetrics & Gynecology
PROC: 10E0XZZ Delivery of Products of Conception, External Approach (ICD-10-PCS; principal; 2019-11-22)
PROC: 10907ZC Drainage of Amniotic Fluid, Therapeutic from Products of Conception, Via Natural or Artificial Opening (ICD-10-PCS; 2019-11-22)
PROC: 0HQ9XZZ Repair Perineum Skin, External Approach (ICD-10-PCS; 2019-11-22)
PROC: 3E0R3BZ Introduction of Anesthetic Agent into Spinal Canal, Percutaneous Approach (ICD-10-PCS; 2019-11-22)
PROC: 00HU33Z Insertion of Infusion Device into Spinal Canal, Percutaneous Approach (ICD-10-PCS; 2019-11-22)
DX: O69.1XX0 Labor and delivery complicated by cord around neck, with compression, not applicable or unspecified (principal); Z37.0 Single live birth; O70.0 First degree perineal laceration during delivery; Z3A.40 40 weeks gestation of pregnancy; Z20.828 Contact with and (suspected) exposure to other viral communicable diseases
CPT/HCPCS: 01967; 36415; 51701; 59025; 59409; 85025; 86592; A9270-GY; J2590; J3010; J7120; U0002

== ENCOUNTER 2022-08-02 01:05 | Inpatient (IN) | payer OTHER ==
[2022-08-02] MEDS ORDERED: Nalbuphine 10 MG/0.5 ML Syringe IVPUSH PRN (01:25)
[2022-08-02] MEDS ORDERED: Sodium Chloride 0.9% 10 ML Syringe FLUSH PRN (01:25)
[2022-08-02] MEDS ORDERED: Oxytocin/Lactated Ringers 10 UNIT/1,000 ML BAG IV SCH (01:30)
[2022-08-02 01:38] LABS: BASOPHILS ABSOLUTE AUTO 0.03 K/mm3 (0.01-0.08); BASOPHILS PERCENT AUTO 0.3 % (0.1-1.2); EOSINOPHILS ABSOLUTE AUTO 0.05 K/mm3 (0.04-0.36); EOSINOPHILS PERCENT AUTO 0.4 (0.7-5.8); HEMOGLOBIN 13.2 gm/dl (11.2-15.7); IMMATURE GRAN ABSOLUTE AUTO 0.04 K/mm3 (0.00-0.10); IMMATURE GRAN PERCENT AUTO 0.3 % (<=1.0); LYMPHOCYTES ABSOLUTE AUTO 1.84 K/mm3 (1.18-3.74); LYMPHOCYTES PERCENT AUTO 15.3 % (19.3-51.7); MEAN CORPUSCULAR HEMOGLOBIN 32.5 pg (25.6-32.2); MEAN CORPUSCULAR HGB CONC 34.7 g/dl (32.2-35.5); MEAN CORPUSCULAR VOLUME 93.6 fl (79.4-94.8); MONOCYTES ABSOLUTE AUTO 0.55 K/mm3 (0.24-0.36); MONOCYTES PERCENT AUTO 4.6 % (4.7-12.5); NEUTROPHILS ABSOLUTE AUTO 9.48 K/mm3 (1.56-6.13); NEUTROPHILS PERCENT AUTO 79.1 % (34.0-71.1); PLATELET COUNT,PLT 206 K/mm3 (182-369); RED BLOOD CELL COUNT 4.06 M/mm3 (3.98-5.22); WHITE BLOOD CELL COUNT,WBC 11.99 K/mm3 (3.98-10.04)
[2022-08-02] MEDS: Lactated Ringers 1,000 ML IV SCH ×2 (01:43→02:15)
[2022-08-02] MEDS ORDERED: ePHEDrine 50 MG/ML SDV IVPUSH PRN (02:20)
[2022-08-02] MEDS ORDERED: fentaNYL 100 MCG/2 ML SDV EPIDUR PRN (02:20)
[2022-08-02] MEDS ORDERED: diphenhydrAMINE 50 MG/ML SDV IVPUSH PRN (02:20)
[2022-08-02] MEDS ORDERED: Bupivacaine/fentaNYL/NS 100 ML Bag EPIDUR PRN (02:20)
[2022-08-02 02:22] LABS: CREATININE 0.6 mg/dL (0.55-1.02); EST CRCL DRUG DOSING (CG) 118.88 mL/min; URIC ACID 4.9 mg/dL (2.6-6.0)
[2022-08-02 03:27] LABS: PROTEIN CREATININE RATIO,URINE 141.1 mg/g (0-149); PROTEIN,URINE RANDOM 22.3 mg/dL (0.0-11.8)
[2022-08-02] MEDS ORDERED: Ibuprofen 600 MG Tab PO PRN (03:44)
[2022-08-02] MEDS ORDERED: Docusate Sodium 100 MG Cap PO PRN (03:44)
[2022-08-02] MEDS ORDERED: Acetaminophen 325 MG Tab PO PRN (03:44)
[2022-08-02] MEDS ORDERED: Witch Hazel Medicated Pads 40/Jar TOP PRN (03:44)
[2022-08-02] MEDS ORDERED: Benzocaine/Menthol 20%-0.5% Spray 78 GM Cannister TOP PRN (03:44)
[2022-08-02] MEDS ORDERED: Ropivacaine 0.2% PF 2 MG/ML 20 ML SDV ONE (06:00)
[2022-08-02] MEDS ORDERED: Sodium Chloride 0.9% 10 ML Syringe FLUSH SCH (09:00)
[2022-08-03 04:20] VITALS: BP 130/77; PULSE 73
== END 2022-08-03 11:20 | disposition home or self-care (01) | DRG 807 ==
LOC: JD.OBCHECK 01:05 → JD.OB 01:07 → JD.OBCHECK 02:14 → OBSVTOIN 03:33 → JD.OB 04:08
PROVIDERS: ADMIT Obstetrics & Gynecology; ATTEND Obstetrics & Gynecology
PROC: 10E0XZZ Delivery of Products of Conception, External Approach (ICD-10-PCS; principal; 2022-08-02)
PROC: 3E0R3BZ Introduction of Anesthetic Agent into Spinal Canal, Percutaneous Approach (ICD-10-PCS; 2022-08-02)
PROC: 00HU33Z Insertion of Infusion Device into Spinal Canal, Percutaneous Approach (ICD-10-PCS; 2022-08-02)
DX: O42.02 Full-term premature rupture of membranes, onset of labor within 24 hours of rupture (principal); Z37.0 Single live birth; O66.0 Obstructed labor due to shoulder dystocia; Z3A.39 39 weeks gestation of pregnancy
CPT/HCPCS: 01967; 36415; 51701; 59025; 59409; 82565; 82570; 83615; 84156; 84450; 84460; 84520; 84550; 85025; 86592; A9270-GY; J2590; J2795; J3490; J7120